=== PATIENT | male | born 1950 | race Caucasian/White ===

== ENCOUNTER 2018-06-07 09:34 | Emergency (ER) | payer BC, MEDICARE ==
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
[2018-06-07 11:14] LABS: ALT (SGPT) 30 U/L (8-55); AST (SGOT) 27 U/L (5-34); Albumin 4.3 g/dL (3.4-4.8); Alkaline Phosphatase 90 U/L (40-150); Anion Gap 12 mmol/L (10-20); BUN (Urea Nitrogen) 18 mg/dL (8.4-25.7); Bilirubin, Total 0.5 mg/dL (0.2-1.2); Calc. Creatinine Clearance 0 mL/min (70-130); Calcium 9.4 mg/dL (7.8-10.44); Carbon Dioxide 27 mmol/L (23-31); Chloride 105 mmol/L (98-107); Estimated GFR-MDRD 59; Globulin 3.1 g/dL (2.4-3.5); Glucose 134 mg/dL (80-115); Potassium 4.7 mmol/L (3.5-5.1); Protein, Total 7.4 g/dL (5.8-8.1); Sodium 139 mmol/L (136-145)
[2018-06-07 11:17] LABS: INR-International Normal Ratio 1.8; Prothrombin Time 20.9 SEC (12.0-14.7)
[2018-06-07 11:21] LABS: #Basophils 0.1 thou/uL (0.0-0.2); #Eosinphils 0.1 thou/uL (0.0-0.7); #Lymphocytes 1.5 thou/uL (1.20-3.40); #Monocytes 0.4 thou/uL (0.11-0.59); #Neutrophils 3.9 thou/uL (1.40-6.50); %Basophils 1.2 % (0.0-1.0); %Eosinophils 2.1 % (0.0-10.0); %Lymphocytes 24.5 % (21.0-51.0); %Monocytes 6.9 % (0.0-10.0); %Neutrophils 65.3 % (42.0-75.0); Hemoglobin 16.5 g/dL (14.0-18.0); Mean Corpuscular HGB CONC 32.5 g/dL (32.0-36.0); Mean Corpuscular Hemoglobin 30.4 pg (27.0-31.0); Mean Corpuscular Volume 93.4 fL (78.0-98.0); Mean Platelet Volume 8.3 fL (7.4-10.4); Platelet Count 111 thou/uL (130-400); Platelet Morphology Comment Appears Decreased; RBC Distribution Width 13.2 % (11.5-14.5); RBC Morphology Normal; Red Blood Cell (RBC) Count 5.44 mill/uL (4.70-6.10)
== END 2018-06-07 12:13 | disposition home or self-care (01) ==
LOC: ERS 09:34
DX: S43.402A Unspecified sprain of left shoulder joint, initial encounter (principal); S20.212A Contusion of left front wall of thorax, initial encounter; I25.10 Atherosclerotic heart disease of native coronary artery without angina pectoris; E11.9 Type 2 diabetes mellitus without complications; I10 Essential (primary) hypertension; Z79.899 Other long term (current) drug therapy; Z79.01 Long term (current) use of anticoagulants; Z79.84 Long term (current) use of oral hypoglycemic drugs; V44.5XXA Car driver injured in collision with heavy transport vehicle or bus in traffic accident, initial encounter
CPT/HCPCS: 36415; 70450; 71045; 80053; 85025; 85610; 93005

== ENCOUNTER 2023-02-10 07:33 | Outpatient (CLI) | payer MEDICARE ==
[2023-02-10 08:21] LABS: Hemoglobin 15.2 g/dL (13.5-17.5); Mean Corpuscular HGB CONC 33.8 g/dL (32.0-36.0); Mean Corpuscular Hemoglobin 31.3 pg (27.0-33.0); Mean Corpuscular Volume 92.8 fl (81.2-95.1); Mean Platelet Volume 9.7 fl (7.4-10.4); Platelet Count 147 10x3/uL (150-450); RBC Distribution Width 14.3 % (11.5-14.5); Red Blood Cell (RBC) Count 4.85 10x6/uL (4.32-5.72); White Blood Cell (WBC) Count 6.4 10x3/uL (3.5-10.5)
[2023-02-10 08:57] LABS: INR-International Normal Ratio 1.2; PTT 31.9 sec (22.0-33.0); Prothrombin Time 12.4 sec (9.5-12.1)
[2023-02-10 09:07] LABS: Anion Gap 15 mmol/L (10-20); BUN (Urea Nitrogen) 21 mg/dL (8.4-25.7); Calc. Creatinine Clearance 0 mL/min (70-130); Calcium 9.4 mg/dL (7.8-10.44); Carbon Dioxide 21 mmol/L (23-31); Chloride 107 mmol/L (98-107); Estimated GFR 52; Glucose 86 mg/dL (83-110); Potassium 4.5 mmol/L (3.5-5.1); Sodium 138 mmol/L (136-145)
== END 2023-02-10 07:34 | disposition home or self-care (01) ==
LOC: LABBT 07:33
PROVIDERS: ATTEND Neurological Surgery
DX: Z01.818 Encounter for other preprocedural examination (principal); M48.061 Spinal stenosis, lumbar region without neurogenic claudication
CPT/HCPCS: 80048; 85027; 85610; 85730; 93005; 93010

== ENCOUNTER 2023-02-12 06:12 | Day surgery (SDC) | payer MEDICARE ==
[2023-02-10 08:10] VITALS: BMI 34.0
[2023-02-12] MEDS ORDERED: Lidocaine 1% MPF 2 ML VIAL ONE (07:44)
[2023-02-12] MEDS ORDERED: EPINEPHrine 1 MG/ML VIAL ONE (09:40)
[2023-02-12] MEDS ORDERED: Bupivacaine PF 0.5% 30 ML VIAL ONE (09:41)
[2023-02-12] MEDS ORDERED: Vancomycin 1 GM VIAL ONE (09:41)
[2023-02-12] MEDS ORDERED: Thrombin 5000 UNITS/5 ML VIAL ONE (09:41)
[2023-02-12] MEDS ORDERED: fentaNYL PF 100 MCG/2 ML SYRINGE ONE ×4 (09:47→13:24)
[2023-02-12] MEDS ORDERED: Sodium Chloride 0.9% 100 ML ONE ×2 (09:52→14:39)
[2023-02-12] MEDS ORDERED: CEFAZOLIN 2 GM VIAL ONE ×2 (09:52→14:39)
[2023-02-12] MEDS ORDERED: Ondansetron PF 4 MG/2 ML Vial ONE (09:57)
[2023-02-12] MEDS ORDERED: PROPOFOL 200 MG/20 ML VIAL ONE (09:57)
[2023-02-12] MEDS ORDERED: Rocuronium Bromide 10 MG/ML (10ML VIAL) ONE (09:57)
[2023-02-12] MEDS ORDERED: Glycopyrrolate 0.2 MG/ML 5 ML SYRINGE ONE (09:57)
[2023-02-12] MEDS ORDERED: Dexamethasone 20 MG/5 ML VIAL ONE (09:57)
[2023-02-12] MEDS ORDERED: NEOSTIGMINE 3 MG/3 ML SYR 3 MG/3 ML SYRINGE ONE (09:57)
[2023-02-12] MEDS ORDERED: PHENYLEPHRINE-NS 100 MCG/ML 10 ML SYRINGE ONE (09:57)
[2023-02-12] MEDS ORDERED: ePHEDrine Sulfate 50 MG/10 ML VIAL ONE (09:57)
[2023-02-12] MEDS ORDERED: Ketorolac Tromethamine 30 MG/ML VIAL ONE (09:57)
[2023-02-12] MEDS ORDERED: Vasopressin 20 UNITS/ML VIAL ONE (12:29)
[2023-02-12] MEDS ORDERED: HYDROmorphone 0.5 MG/0.5 ML SYRINGE ONE ×3 (12:42→13:15)
[2023-02-12] MEDS ORDERED: Tamsulosin HCl 0.4 MG CAP ONE (13:43)
[2023-02-12] MEDS ORDERED: HYDROcodone/Acetaminophen 5/325 mg Tablet ONE (14:41)
== END 2023-02-12 18:28 | disposition home or self-care (01) ==
LOC: SDC 06:12
PROVIDERS: ATTEND Neurological Surgery
PROC: 01NB0ZZ Release Lumbar Nerve, Open Approach (ICD-10-PCS; principal; 2023-02-12)
DX: M48.062 Spinal stenosis, lumbar region with neurogenic claudication (principal); Z91.041 Radiographic dye allergy status
CPT/HCPCS: 63047; 63048 ×2; J0171; J1100; J1170; J1885; J2405; J2704; J3370; J3490; S0020

== ENCOUNTER 2023-08-28 17:15 | Inpatient (IN) | payer MEDICARE ==
[2023-08-28 17:45] LABS: #Basophils Less than 0.03 10x3/uL (0.0-0.2); %Basophils 0.1 % (0.0-1.0); %Eosinophils 1.4 % (0.0-10.0); %Lymphocytes 19.6 % (21.0-51.0); %Monocytes 7.4 % (0.0-10.0); %Neutrophils 71.4 % (42.0-75.0); Hematocrit 32.5 % (42.0-52.0); Hemoglobin 10.9 g/dL (14.0-18.0); Mean Corpuscular HGB CONC 33.5 g/dL (32.0-36.0); Mean Corpuscular Hemoglobin 30.7 pg (27.0-31.0); Mean Corpuscular Volume 91.5 fL (78.0-98.0); Mean Platelet Volume 9.8 fL (7.4-10.4); Platelet Count 147 10x3/uL (130-400); RBC Distribution Width 14.7 % (11.5-14.5); Red Blood Cell (RBC) Count 3.55 mill/uL (4.70-6.10)
[2023-08-28] MEDS ORDERED: Ondansetron PF 4 MG/2 ML Vial ONE ×3 (17:59→20:31)
[2023-08-28] MEDS ORDERED: Morphine 4 MG/ML VIAL ONE (17:59)
[2023-08-28 18:40] LABS: ALT (SGPT) 24 U/L (8-55); AST (SGOT) 25 U/L (5-34); Albumin 3.3 g/dL (3.4-4.8); Alkaline Phosphatase 100 U/L (40-110); Anion Gap 14 mmol/L (10-20); BUN (Urea Nitrogen) 41 mg/dL (8.4-25.7); Bilirubin, Total 0.4 mg/dL (0.2-1.2); Calc. Creatinine Clearance 0 mL/min (70-130); Calcium 8.8 mg/dL (7.8-10.44); Carbon Dioxide 19 mmol/L (23-31); Chloride 108 mmol/L (98-107); Estimated GFR 29; Globulin 2.8 g/dL (2.4-3.5); Glucose 175 mg/dL (83-110); Lipase 33 U/L (8-78); Potassium 4.8 mmol/L (3.5-5.1); Protein, Total 6.1 g/dL (5.8-8.1); Sodium 136 mmol/L (136-145)
[2023-08-28 18:41] LABS: Prothrombin Time 13.3 sec (12.0-14.7)
[2023-08-28 19:51] LABS: Bilirubin Negative (Negative); Blood, Urine Large (Negative); Glucose, Urine (Dipstick) 100 mg/dL (Negative); Ketone, Urine Trace mg/dL (Negative); Leukocyte Trace (Negative); Nitrite Positive (Negative); Protein, Urine (Dipstick) > or equal to 300 mg/dL (Neg-Trace); Specific Gravity, Urine 1.025 (1.005-1.030); Urobilinogen 0.2 mg/dL (Less than 2); pH, Urine 6.5 (5.0-9.0)
[2023-08-28 19:55] LABS: Clarity Bloody (Clear)
[2023-08-28 19:56] LABS: RBC/HPF Greater than 50 HPF (0-3)
[2023-08-28 19:57] LABS: Bacteria/HPF Rare-Few HPF (None Seen); CAUTI Indications for Culture Acute Hematuria; Squamous Epithelial 0-3 HPF (0-3)
[2023-08-28 19:59] LABS: Urine Culture Reflex No No
[2023-08-28] MEDS ORDERED: Cefepime 2 GM VIAL ONE (20:30)
[2023-08-28] MEDS ORDERED: Acetaminophen 325 MG TAB PO PRN (20:33)
[2023-08-28] MEDS ORDERED: Sodium Chloride 0.9% 100 ML ONE (20:37)
[2023-08-28] MEDS ORDERED: Dextrose 5% in Water 1,000 ML IV PRN (21:24)
[2023-08-28] MEDS ORDERED: HumaLOG 300 UNITS/3 ML VIAL SC PRN (21:24)
[2023-08-28] MEDS ORDERED: Glucagon 1 MG/ML KIT IM PRN (21:24)
[2023-08-28] MEDS ORDERED: Dextrose 50% Abboject 50 ML SYRINGE SLOW IVP PRN (21:24)
[2023-08-28] MEDS ORDERED: cefTRIAXone Sodium 1 MG in Syringe 0 ML IVPB SCH (21:30)
[2023-08-28] MEDS: Famotidine 20 MG TAB PO SCH (22:44)
[2023-08-28 22:49] VITALS: BMI 33.3
[2023-08-28] MEDS: HYDROcodone/Acetaminophen 5/325 mg Tablet PO PRN (23:30)
[2023-08-28] MEDS: Sodium Chloride 0.9% 1,000 ML IV SCH (23:32)
[2023-08-28] MEDS: cefTRIAXone\\ROCEPHIN 1 GM in Sodium Chloride 0.9% 100 ML IVPB SCH (23:32)
[2023-08-29] MEDS: Sodium Chloride 0.9% 1,000 ML IV SCH (00:55)
[2023-08-29 06:14] LABS: #Basophils Less than 0.03 10x3/uL (0.0-0.2); %Basophils 0.3 % (0.0-1.0); %Eosinophils 1.4 % (0.0-10.0); %Lymphocytes 11.5 % (21.0-51.0); %Monocytes 7.7 % (0.0-10.0); %Neutrophils 78.7 % (42.0-75.0); Hematocrit 31.4 % (42.0-52.0); Hemoglobin 10.2 g/dL (14.0-18.0); Mean Corpuscular HGB CONC 32.5 g/dL (32.0-36.0); Mean Corpuscular Hemoglobin 30.1 pg (27.0-31.0); Mean Corpuscular Volume 92.6 fL (78.0-98.0); Mean Platelet Volume 10.4 fL (7.4-10.4); Platelet Count 122 10x3/uL (130-400); Red Blood Cell (RBC) Count 3.39 mill/uL (4.70-6.10)
[2023-08-29 06:27] LABS: ALT (SGPT) 20 U/L (8-55); AST (SGOT) 18 U/L (5-34); Alkaline Phosphatase 94 U/L (40-110); Anion Gap 13 mmol/L (10-20); BUN (Urea Nitrogen) 39 mg/dL (8.4-25.7); Bilirubin, Total 0.3 mg/dL (0.2-1.2); Calc. Creatinine Clearance 55 mL/min (70-130); Calcium 8.4 mg/dL (7.8-10.44); Carbon Dioxide 20 mmol/L (23-31); Chloride 110 mmol/L (98-107); Estimated GFR 38; Globulin 2.8 g/dL (2.4-3.5); Glucose 153 mg/dL (83-110); Potassium 4.6 mmol/L (3.5-5.1); Protein, Total 5.8 g/dL (5.8-8.1); Sodium 138 mmol/L (136-145)
[2023-08-29] MEDS: dilTIAZem CD 120 MG CAP PO SCH (08:42)
[2023-08-29] MEDS: Dronedarone HCl 400 MG TAB PO SCH (08:43)
[2023-08-29] MEDS: Allopurinol 100 MG TAB PO SCH (08:43)
[2023-08-29] MEDS ORDERED: Heparin 10,000 UNITS/ 10 ML VIAL SLOW IVP SCH (09:30)
[2023-08-29 10:53] LABS: Hematocrit 32.7 % (42.0-52.0); Hemoglobin 10.6 g/dL (14.0-18.0); Platelet Count 138 10x3/uL (130-400)
[2023-08-29] MEDS: Heparin 25,000 units/D5W 500 ML IVPB SCH (12:24)
[2023-08-29] MEDS ORDERED: Promethazine HCl 25 MG in Sodium Chloride 0.9% 50 ML IVPB PRN (18:22)
[2023-08-29] MEDS ORDERED: Ondansetron PF 4 MG/2 ML Vial IVP SCH (18:30)
[2023-08-29 18:33] LABS: Hematocrit 33.9 % (42.0-52.0); Hematocrit 34.3 % (42.0-52.0); Hemoglobin 11.3 g/dL (14.0-18.0); Platelet Count 157 10x3/uL (130-400)
[2023-08-29] MEDS: Promethazine HCl 25 MG in Sodium Chloride 0.9% 50 ML IVPB SCH (19:38)
[2023-08-29] MEDS: Rosuvastatin 20 MG TAB PO SCH (20:46)
[2023-08-29] MEDS: Morphine 2 MG/ML VIAL SLOW IVP PRN (23:34)
[2023-08-30] MEDS: Oxybutynin 5 MG TAB PO SCH ×2 (00:51→08:21)
[2023-08-30 03:31] LABS: #Basophils Less than 0.03 10x3/uL (0.0-0.2); %Basophils 0.2 % (0.0-1.0); %Eosinophils 0.5 % (0.0-10.0); %Lymphocytes 12.2 % (21.0-51.0); %Monocytes 6.6 % (0.0-10.0); %Neutrophils 80.1 % (42.0-75.0); Hematocrit 26.9 % (42.0-52.0); Mean Corpuscular HGB CONC 33.5 g/dL (32.0-36.0); Mean Corpuscular Volume 92.8 fL (78.0-98.0); Platelet Count 127 10x3/uL (130-400)
[2023-08-30] MEDS ORDERED: Rocuronium Bromide 10 MG/ML (10ML VIAL) ONE (12:57)
[2023-08-30] MEDS ORDERED: fentaNYL 50 mcg/mL 1 mL Vial ONE ×2 (12:57→13:38)
[2023-08-30] MEDS ORDERED: PROPOFOL 20 ML ONE (12:57)
[2023-08-30] MEDS ORDERED: SUGAMMADEX SODIUM 200 MG/2 ML VIAL ONE (12:57)
[2023-08-30] MEDS ORDERED: SUCCINYLCHOLINE/SOD CL,ISO/PF 200 MG/10 ML SYRINGE FS ONE (12:58)
[2023-08-30] MEDS ORDERED: Lidocaine 2% PF 5 ML VIAL ONE (12:58)
[2023-08-30] MEDS ORDERED: Famotidine/PF 20 mg/2ml Vial ONE (13:03)
[2023-08-30] MEDS ORDERED: Ondansetron PF 4 MG/2 ML Vial ONE (13:05)
[2023-08-30] MEDS ORDERED: PHENYLEPHRINE-NS 100 MCG/ML 10 ML SYRINGE ONE (13:29)
[2023-08-30] MEDS ORDERED: Metoprolol Tartrate 5 MG (5 mL) VIAL ONE (13:46)
[2023-08-30] MEDS ORDERED: Ondansetron HCl/PF 4 MG/2 ML Vial IVP PRN (14:50)
[2023-08-30] MEDS ORDERED: Promethazine HCl 25 MG/ML VIAL IM PRN (14:50)
[2023-08-31] MEDS ORDERED: Heparin 10,000 UNITS/ 10 ML VIAL SLOW IVP SCH (09:15)
[2023-08-31] MEDS: CeleCOXIB 100 MG CAP PO SCH (10:21)
[2023-08-31 10:55] LABS: #Basophils Less than 0.03 10x3/uL (0.0-0.2); %Basophils 0.3 % (0.0-1.0); %Eosinophils 1.6 % (0.0-10.0); %Lymphocytes 14.9 % (21.0-51.0); %Neutrophils 75.8 % (42.0-75.0); Hematocrit 24.2 % (42.0-52.0); Hemoglobin 7.7 g/dL (14.0-18.0); Mean Corpuscular HGB CONC 31.8 g/dL (32.0-36.0); Mean Corpuscular Hemoglobin 30.8 pg (27.0-31.0); Mean Corpuscular Volume 96.8 fL (78.0-98.0); Platelet Count 133 10x3/uL (130-400); RBC Distribution Width 15.4 % (11.5-14.5)
[2023-08-31 11:24] LABS: Anion Gap 10 mmol/L (10-20); BUN (Urea Nitrogen) 22 mg/dL (8.4-25.7); Calc. Creatinine Clearance 76 mL/min (70-130); Calcium 8.1 mg/dL (7.8-10.44); Carbon Dioxide 21 mmol/L (23-31); Chloride 111 mmol/L (98-107); Estimated GFR 55; Glucose 138 mg/dL (83-110); Potassium 4.3 mmol/L (3.5-5.1); Sodium 138 mmol/L (136-145)
[2023-08-31] MEDS: Heparin 25,000 units/D5W 500 ML IVPB SCH (11:47)
[2023-08-31] MEDS: Metoprolol Tartrate 25 MG TAB PO SCH (20:11)
[2023-09-01] MEDS ORDERED: Senokot S 8.6-50 MG TAB PO PRN (00:05)
[2023-09-01 06:06] LABS: #Basophils Less than 0.03 10x3/uL (0.0-0.2); %Basophils 0.2 % (0.0-1.0); %Neutrophils 70.5 % (42.0-75.0); Hematocrit 23.9 % (42.0-52.0); Hemoglobin 7.9 g/dL (14.0-18.0); Mean Corpuscular HGB CONC 33.1 g/dL (32.0-36.0); Mean Corpuscular Hemoglobin 30.4 pg (27.0-31.0); Mean Corpuscular Volume 91.9 fL (78.0-98.0); Mean Platelet Volume 10.4 fL (7.4-10.4); Platelet Count 169 10x3/uL (130-400); RBC Distribution Width 15.2 % (11.5-14.5)
[2023-09-01 06:31] LABS: Anion Gap 12 mmol/L (10-20); BUN (Urea Nitrogen) 19 mg/dL (8.4-25.7); Calc. Creatinine Clearance 84 mL/min (70-130); Calcium 8.1 mg/dL (7.8-10.44); Carbon Dioxide 20 mmol/L (23-31); Chloride 112 mmol/L (98-107); Estimated GFR 62; Glucose 115 mg/dL (83-110); Potassium 4.1 mmol/L (3.5-5.1); Sodium 140 mmol/L (136-145)
[2023-09-01] MEDS: predniSONE 50 MG TAB PO SCH (17:26)
[2023-09-01] MEDS: Famotidine 20 MG TAB PO SCH (20:57)
[2023-09-01] MEDS: diphenhydrAMINE 25 MG CAP PO SCH (22:40)
[2023-09-02] MEDS: predniSONE 50 MG TAB PO SCH ×2 (00:32→06:04)
[2023-09-02] MEDS: diphenhydrAMINE 50 MG CAP PO SCH (06:03)
[2023-09-02] MEDS ORDERED: Midazolam HCl 2 mg/2 ml Vial ONE (07:02)
[2023-09-02] MEDS ORDERED: fentaNYL 50 mcg/mL 1 mL Vial ONE (07:02)
[2023-09-02 10:58] LABS: Hematocrit 26.1 % (42.0-52.0); Hemoglobin 8.4 g/dL (14.0-18.0); Platelet Count 159 10x3/uL (130-400)
[2023-09-02] MEDS: HumaLOG 300 UNITS/3 ML VIAL SC PRN (13:08)
[2023-09-02 14:30] VITALS: BP 136/67; TEMP 98.4
== END 2023-09-02 17:02 | disposition home or self-care (01) | DRG 713 ==
LOC: ERS 17:15 → T4-B 20:35 → OBSVTOIN 08-30 12:51
PROVIDERS: ADMIT Internal Medicine; ATTEND Internal Medicine
PROC: 0VT08ZZ Resection of Prostate, Via Natural or Artificial Opening Endoscopic (ICD-10-PCS; principal; 2023-08-30)
PROC: 0T5C8ZZ Destruction of Bladder Neck, Via Natural or Artificial Opening Endoscopic (ICD-10-PCS; 2023-08-30)
PROC: 06H03DZ Insertion of Intraluminal Device into Inferior Vena Cava, Percutaneous Approach (ICD-10-PCS; 2023-09-02)
DX: N40.1 Benign prostatic hyperplasia with lower urinary tract symptoms (principal); I82.411 Acute embolism and thrombosis of right femoral vein; N13.6 Pyonephrosis; I82.431 Acute embolism and thrombosis of right popliteal vein; N17.9 Acute kidney failure, unspecified; R31.9 Hematuria, unspecified; I48.91 Unspecified atrial fibrillation; N32.89 Other specified disorders of bladder; K80.20 Calculus of gallbladder without cholecystitis without obstruction; I10 Essential (primary) hypertension; N21.0 Calculus in bladder; G47.33 Obstructive sleep apnea (adult) (pediatric); M10.9 Gout, unspecified; E78.5 Hyperlipidemia, unspecified; I25.10 Atherosclerotic heart disease of native coronary artery without angina pectoris; Z79.899 Other long term (current) drug therapy; Z79.84 Long term (current) use of oral hypoglycemic drugs; Z95.1 Presence of aortocoronary bypass graft
CPT/HCPCS: 36415; 36416; 71250; 74176; 74183; 76770; 80048; 80053; 81001; 83690; 83880; 84145; 85014; 85018; 85025; 85049; 85610; 85730; 87040; 87086; 88305; 93005; 96374; 96375; 96376; C1769; C1880; C1894; J0692; J0696; J1644; J1815; J2001; J2250; J2270; J2272; J2405; J2550; J2704; J3010; J3490; J7050; J7512; S0028

== ENCOUNTER 2023-09-08 09:29 | Outpatient (CLI) | payer MEDICARE ==
[2023-09-08 10:21] LABS: Hematocrit 27.7 % (38.8-50.0); Hemoglobin 8.8 g/dL (13.5-17.5); Mean Corpuscular HGB CONC 31.8 g/dL (32.0-36.0); Mean Corpuscular Hemoglobin 29.5 pg (27.0-33.0); Mean Platelet Volume 9.4 fL (7.4-10.4); Platelet Count 186 10x3/uL (150-450); RBC Distribution Width 14.8 % (11.5-14.5); Red Blood Cell (RBC) Count 2.98 10x6/uL (4.32-5.72); White Blood Cell (WBC) Count 6.3 10x3/uL (3.5-10.5)
[2023-09-08 10:42] LABS: Anion Gap 12 mmol/L (10-20); BUN (Urea Nitrogen) 17 mg/dL (8.4-25.7); Calc. Creatinine Clearance 0 mL/min (70-130); Calcium 8.6 mg/dL (7.8-10.44); Carbon Dioxide 26 mmol/L (23-31); Chloride 107 mmol/L (98-107); Estimated GFR 47; Glucose 133 mg/dL (83-110); Potassium 4.1 mmol/L (3.5-5.1); Sodium 141 mmol/L (136-145)
[2023-09-08 10:44] LABS: Bilirubin Neg (Negative); Blood, Urine 250 (Negative); Clarity Clear (Clear); Glucose, Urine (Dipstick) Normal (Negative); Ketone, Urine Negative (Negative); Leukocyte 25 (Negative); Nitrite Negative (Negative); Protein, Urine (Dipstick) 100 mg/dl (Neg-Trace); Prothrombin Time 10.8 sec (9.5-12.1); Specific Gravity, Urine 1.025 (1.005-1.030); Urobilinogen Normal mg/dL (Less than 2)
[2023-09-08 11:26] LABS: WBC/HPF 0-3 HPF (0-3)
[2023-09-08 11:27] LABS: Bacteria/HPF None Seen HPF (None Seen); Squamous Epithelial 0-3 HPF (0-3)
== END 2023-09-08 09:30 | disposition home or self-care (01) ==
LOC: LABBT 09:29
PROVIDERS: ATTEND Urology
DX: Z01.818 Encounter for other preprocedural examination (principal); N28.89 Other specified disorders of kidney and ureter
CPT/HCPCS: 71046; 80048; 81001; 85027; 85610; 85730; 87086